=== PATIENT | male | born 2000 | race Caucasian/White ===

== ENCOUNTER 2021-06-17 14:22 | Emergency (ER) | payer OTHER ==
[2021-06-17] MEDS ORDERED: Dexamethasone 10 MG/ML VIAL ONE (14:52)
[2021-06-17] MEDS ORDERED: Lorazepam 2 MG/ML VIAL ONE (14:52)
[2021-06-17] MEDS ORDERED: Fentanyl 100 MCG/2 ML VIAL ONE (14:53)
[2021-06-17] MEDS ORDERED: Ketorolac Tromethamine 30 MG/ML VIAL ONE (14:53)
== END 2021-06-17 17:34 | disposition home or self-care (01) ==
LOC: CSHERS 14:22
DX: M51.26 Other intervertebral disc displacement, lumbar region (principal)
CPT/HCPCS: 72131; 96374; 96375; J1100; J1885; J2060; J3010